=== PATIENT | male | born 1950 | race Caucasian/White ===

== ENCOUNTER → 2018-08-10 | Outpatient (CLI) | payer MEDICARE, OTHER ==
--- NOTE | 2018-08-10 13:55 | RADIOLOGY REPORT (SQ) ---
EXAM DESCRIPTION: MRI RT UPPER JOINT WITHOUT COMPLETED DATE/TIME: 08/10/2018 10:21 am REASON FOR STUDY: PAIN IN RIGHT SHOULDER (M25.511) M25.511 PAIN IN RIGHT SHOULDER COMPARISON: Outside right shoulder films 08/04/2018 TECHNIQUE: Right shoulder images acquired and stored on PACS. Multiplanar imaging to include fat sen sitive sequences such as T1, water sensitive sequences such as FST2/STIR, cartilage sensitive sequenc es such as FSPD/gradient-echo sequences. LIMITATIONS: None. FINDINGS: BONE MARROW AND CORTEX: No worrisome bone lesions or marrow replacement. No occult fractur es. JOINT OR BURSAL EFFUSION: Small glenohumeral joint effusion continuous with the subacromial/subdeltoi d bursa from full-thickness rotator cuff tear GLENO-HUMERAL ARTICULATION: Mild chondromalacia. Right humeral head abuts the undersurface of the ac romion. ACROMION AND AC JOINT: Type 2 acromion with bulky acromioclavicular joint hypertrophy and fluid in t he AC joint best shown on sagittal image 15. ROTATOR CUFF AND INTERVAL: There is a diffuse full-thickness tear throughout the supra and infraspina tus tendons at the attachment to the greater tuberosity. Edema is present in the supra and infraspin atus muscles. Subscapularis is intact. Rotator interval is indistinct. LABRUM AND BICEPS LABRAL COMPLEX: Intra-articular long head biceps tendon is diffusely thickened fr om tendinopathy. Diffuse superior labral tear. REMAINDER OF LABRUM AND IGHL : No gross tear or paralabral cyst formation. Labral evaluation is less than optimal without joint distention. No thickening of IGHL to suggest adhesive capsulitis. PERIARTICULAR AND ADJACENT SOFT TISSUES: No masses or abnormal nodes. OTHER: No other significant finding. IMPRESSION: Full-thickness supraspinatus and infraspinatus distal attachment tear, with edema in the muscles Intra-articular long head biceps tendinopathy with superior labral tear TECHNICAL DOCUMENTATION: JOB ID: [id number] [employer]- All Rights Reserved Reading location - IP/workstation name: [email or web address]
== END ==
LOC: RAD 08:50
PROVIDERS: ATTEND Physician Assistant
DX: M25.511 Pain in right shoulder (principal); M75.121 Complete rotator cuff tear or rupture of right shoulder, not specified as traumatic